=== PATIENT | female | born 1995 | race Two or more races ===

== ENCOUNTER 2024-10-11 04:05 | Inpatient (IN) | payer MEDICAID ==
[~2024-10-11] VITALS: Ht 165.1 cm; Wt 73.9 kg
[2024-10-11] MEDS ORDERED: PHISODERM TOP SOLN 240ML BTL TOP PRN (04:30)
[2024-10-11] MEDS ORDERED: DERMOPLAST 60ML BOTTLE TOP PRN (04:30)
[2024-10-11] MEDS ORDERED: LACTATED RINGER'S 1,000 ML IV SCH (04:30)
[2024-10-11] MEDS ORDERED: NALBUPHINE HCL 10 MG/1ml INJECTION IV PRN (04:30)
[2024-10-11] MEDS ORDERED: PENICILLIN G POT 5MIL/D5 50ML 50 ML IV ONE ×2 (04:30→04:52)
[2024-10-11] MEDS ORDERED: LIDOCAINE 2%HCL (LOCAL ANESTH.) INJ 20ML MDV IJ PRN (04:30)
[2024-10-11] MEDS ORDERED: WITCH HAZEL-GLYCERIN PAD TOP PRN (04:30)
[2024-10-11] MEDS: LACT. RINGERS/OXYTOCIN 20UNITS 500 ML IV ONE (04:58)
[2024-10-11] MEDS ORDERED: LACT. RINGERS/OXYTOCIN 20UNITS 500 ML IV ONE (05:00)
[2024-10-11] MEDS: METHYLERGONOVINE MALEATE 0.2 MG/ML AMP IM ONE (05:04)
[2024-10-11 05:20] LABS: Basophils # (auto) 0.1 10 ^3/uL (0-0.2); Basophils % (auto) 0.6 % (0.0-2.0); Eosinophils # (auto) 0.1 10 ^3/uL (0-0.8); Eosinophils % (auto) 0.9 % (0.0-7.0); Hemoglobin 12.7 g/dL (12.2-16.2); INR 0.95 (0.9-1.15); Lymphocytes # (auto) 2.5 10 ^3/uL (0.4-5.4); Lymphocytes % (auto) 24.3 % (10.0-50.0); Mean Corpuscular Hemoglobin 22.5 pg (28.0-32.0); Mean Corpuscular Hgb Conc. 31.9 g/dL (32.0-36.0); Mean Corpuscular Volume 70.7 fL (80.0-100.0); Monocytes # (auto) 0.6 10 ^3/uL (0-1.3); Monocytes % (auto) 6.1 % (0.0-12.0); Neutrophils % (auto) 68.1 % (37.0-80.0); Nucleated Red Blood Cells % 0.3 %; Partial Thromboplastin Time 28.7 SEC (24.5-34.5); Platelet Count (auto) 103 10^3/uL (140-450); Prothrombin Time 10.1 sec (9.3-11.8); Red Blood Cells 5.65 10^6/uL (4.0-5.20); Red Cell Distribution Width 16.9 % (11.8-14.3); White Blood Cell 10.3 10^3/uL (4.4-10.8)
[2024-10-11 05:26] LABS: Albumin 4.3 g/dL (3.2-4.8); Anion Gap 12 (5-15); Aspartate Aminotransferase 21 U/L (13-40); BUN/Creatinine Ratio 8.8 (10.0-20.0); Calcium 9.6 mg/dL (8.7-10.4); Carbon Dioxide 21 mmol/L (20-31); Chloride 106 mmol/L (98-107); Glucose 100 mg/dL (74-106); Sodium 139 mmol/L (136-145)
[2024-10-11 05:34] LABS: Alanine Aminotransferase < 9 U/L (7-40); Alkaline Phosphatase 254 U/L (46-116); Blood Urea Nitrogen 6 mg/dL (9-23); Potassium 3.4 mmol/L (3.5-5.1)
--- NOTE | 2024-10-11 05:35 | DVHHP2 ---
OB CC & HPI Date Date of Admission: Oct 11, 2024 Patient Identification: : 3 Para: 2 EDC: Oct 23, 2024 EGA: 38WKS Chief Complaints: Reason for admission: active labor Admission Nurse Assessment Rev: No History of Present Complaints PT PRESENTED IN ACTIVE LABOR WITH ROM .SHE STATES SHE HAD CARE IN [place] Past Medical History Cardiac: No pertinent Hx Pulmonary: No pertinent Hx Central Nervous System: No pertinent Hx GI: No pertinent Hx Hemotology/Oncology: No pertinent Hx Hepatobiliary: No pertinent Hx Psychiatric: No pertinent Hx Musculoskeletal: No pertinent Hx Rheumotologic: No pertinent Hx Infectious Disease: No peritnent Hx ENT: No pertinent Hx Renal/: No pertinent Hx Endocrine: No pertinent Hx Dermatology: No pertinent Hx Past Surgical History: No pertinent Hx OB History OB History Care: Limited Care Ultrasounds: No ultrasounds Obstetrical Complications: None Medical Complications: None Allergies: Coded Allergies: NO KNOWN ALLERGIES (Unverified , 10/11/24) Current Medications Current Medications Medications (Trade) Dose Ordered Sig/Barron Route PRN Reason Start Time Stop Time Status Last Admin Lactated Ringer's 1,000 ml @ 125 mls/hr Q8H IV 10/11/24 04:30 Nalbuphine HCl (Nubain) 10 mg Q4HP PRN IV MODERATE PAIN (4-6 PAIN SCALE) 10/11/24 04:30 Penicillin G Potassium [id number] units/Dextrose 50 ml @ 100 mls/hr Q4H IV 10/11/24 08:30 Witch Lauren (Tucks) 1 pad PRN PRN TOP PERINEAL AREA DISCOMFORT 10/11/24 04:30 Sodium Lauryl Sulfate (Phisoderm) 240 ml PRN PRN TOP PERINEAL AREA DISCOMFORT 10/11/24 04:30 Benzocaine (Dermoplast) 1 applic PRN PRN TOP PERINEAL AREA DISCOMFORT 10/11/24 04:30 Lidocaine HCl (Xylocaine) 40 ml ONCE PRN IJ PERINEAL AREA DISCOMFORT 10/11/24 04:30 Family & Social History Family/Social History Blood Type: Unknown Rubella: unknown RPR/VDRL: Unknown GBS Status: Unknown HBsAG: Unknown Review of Systems Constitutional: No symptom reported Ears, Nose, & Throat: No symptom reported Eyes: No symptom reported Pulmonary/Respiratory: No symptom reported Cardiovascular: No symptom reported Gastrointestinal: No symptom reported Genitourinary: No symptom reported Musculoskeletal: No symptom reported Skin: No symptom reported Psychiatric: No symptom reported Endocrine: No symptom reported Hemotologic/Lymphatic: No symptom reported OB Admission Exam Physical Exam HEENT: TMs Normal, Fontanelles Normal, Nasal Mucosa Normal, Eyes non-injected, Oropharynx Normal, PERRLA, Moist Membranes, EOMI Heart: Rhythm Normal Lungs: Clear Abdomen: Non tender Extremities: Normal Reflexes: Normal Cervical Dilatation: 10cm Effacement: 100% Station: +3 Membranes: Ruptured Amniotic Fluid: Thick Meconium Heart Rate: 130's Accelerations: Accelerations Present Decelerations: No Decelerations Short Term Variability: Present Plant Inspector Variability: Average (6-25) Contractions on Admission: < 5 Minutes Apart Intensity: Moderate OB Plan Plan Admitting Diagnosis: ACTIVE Labor IUP AT 38WKS LIMITED CARE THICK MECONIUM Plan: Expectant Management Other Plan: INFORMED CONSENT OBTAINED Visit Coding OBGYN Date of Service: Oct 11, 2024 Billing Provider: APOLINAR BULL DO CLINIC RECEPTIONIST Common Visit Codes: 44263-WXFTMLP INP/OBS CARE (HIGH) CLINIC RECEPTIONIST Consultation Codes: 28469-C/U INPATIENT CONSULT (MOD) CLINIC RECEPTIONIST Procedure Codes: 81906-57- NON-STRESS TEST APOLINAR BULL DO Oct 11, 2024 05:35
--- NOTE | 2024-10-11 05:36 | DVH ---
EXAM: US Second or Third Trimester , Transabdominal CLINICAL INDICATION: NO CARE TECHNIQUE: Real-time transabdominal obstetrical ultrasound of the maternal pelvis and a second or th ird trimester with image documentation. COMPARISON: None FINDINGS: FETUS: Single live intrauterine . HEART RATE: heart rate 138 beats per minute. PRESENTATION: PLACENTA: Unremarkable. No placenta previa or abruption noted. AMNIOTIC FLUID: Unremarkable. ANATOMY: Intracranial/face anatomy not seen. Spinal anatomy not seen. Abdominal anatomy not seen. Extremities not seen. Four-chamber heart not seen. Umbilical cord not seen. BIOMETRICS GESTATIONAL AGE: FAITH: 11/10/2024 EFW: Estimated weight 2007 and 52 g. BPD: BPD 8.6 cm. HC: HC 31.9 cm. AC: AC 31.50 cm. FL: FL 7.15 cm. MATERNAL: UTERUS: Unremarkable. No myometrial mass. CERVIX: Unremarkable as visualized. Closed. FREE FLUID: No free fluid. OTHER FINDINGS: . Difficult scan secondary to active labor. HC/AC 1.02. FL/AC 22.70. MARIA DEL ROS[place]IO 80 0.5 8. . . . . .. IMPRESSION: A single intrauterine corresponding to 35 weeks and 5 days gestation.
--- NOTE | 2024-10-11 05:38 | LDN2 ---
Labor and Delivery Note Date 10/11/24 Age 29 3 Para 3 EDC 2-26 EGA 38WKS Diagnosis ACTIVE LABOR,LIMITED CARE,THICK MECONIUM Vaginal Delivery: VTX Vacuum Assisted: No Placenta: Spontaneous Sex: Male Apgars 8-9 Nuchal Cord Transected: No Amniotic Fluid: Thick Anesthesia XYLOCAINE Episiotomy: No Extension: Yes (1ST DEG PERINEAL LAC) Repaired with 2-0 CHROMIC EBL 300ML Labs Laboratory Tests 10/11/24 04:40: Complications NONE Conditions STABLE Comments/Significant Med Elham SPEC EXAM NOK CXAL LAC,CORD PH 7.4 Visit Coding OBGYN Date of Service: Oct 11, 2024 Billing Provider: APOLINAR BULL DO SENIOR ACCOUNTANT ANALYST Common Visit Codes: 43782-GUQ/OBS SAME DATE (HIGH) SENIOR ACCOUNTANT ANALYST Consultation Codes: 15621-A/U INPATIENT CONSULT (HIGH) SENIOR ACCOUNTANT ANALYST Procedure Codes: 45333-ZWT DEL INCLUDING APOLINAR BULL DO Oct 11, 2024 05:38
[2024-10-11 05:42] LABS: Urine Bacteria None Seen /hpf (None Seen)
[2024-10-11 05:53] LABS: Urine Blood 2+ /uL (Negative); Urine Clarity Turbid (Clear); Urine Color Light-Yellow (Yellow); Urine Mucus FEW (None Seen); Urine Protein, UAD Negative (Negative); Urine Specific Gravity 1.017 (1.001-1.035); Urine Squamous Epithelial Cell FEW /hpf (<5); Urine Urobilinogen Normal (Negative); Urine WBC 72 /HPF (0-5); Urine pH 6.5 (5.0-9.0)
[2024-10-11 06:26] LABS: Giant Platelets Few; Platelet Estimate Decreased
[2024-10-11 06:27] LABS: Hypochromia Slight; Ovalocytes FEW
[2024-10-11 06:46] LABS: Opiate Scree,Urine Neg (NEGATIVE)
[2024-10-11 06:47] LABS: Amphetamine Screen, Urine Neg (NEGATIVE); Barbiturate Scree,Urine Neg (NEGATIVE); Benzodiazephine Screen, Urine Neg (NEGATIVE); Cannabinoid Screen, Urine Neg (NEGATIVE); Cocaine Screen, Urine Neg (NEGATIVE); Phencyclidine Screen, Urine Neg (NEGATIVE)
[2024-10-11 06:57] LABS: Bilirubin, Total 0.3 mg/dL (0.2-1.0)
[2024-10-11] MEDS ORDERED: ACETAMINOPHEN 325 MG TAB PO PRN (07:15)
[2024-10-11] MEDS: IBUPROFEN 600 MG TAB PO PRN (07:22)
[2024-10-11] MEDS ORDERED: PENICILLIN G POTASSIUM 2,500,000 UNITS in D5W 5% 50 ML IV SCH (08:30)
[2024-10-11 11:30] VITALS: BP 116/64; PULSE 68; RESP 16; TEMP 98.3; O2SAT 97
[2024-10-11 15:25] VITALS: BP 118/67; PULSE 72; RESP 16; TEMP 98.1; O2SAT 97
[2024-10-11 18:59] VITALS: BP 126/74; PULSE 62; RESP 15; TEMP 98.4; O2SAT 99
[2024-10-11] MEDS ORDERED: DOCUSATE SOD 100 MG CAP PO SCH (22:00)
[2024-10-11 23:00] VITALS: BP 109/55; PULSE 65; RESP 16; TEMP 98.2; O2SAT 99
[2024-10-12 03:00] VITALS: BP 101/58; PULSE 66; RESP 15; TEMP 98.1; O2SAT 98
[2024-10-12 07:00] VITALS: BP 102/59; PULSE 59; RESP 14; TEMP 97.8; O2SAT 97
[2024-10-12 07:07] LABS: RPR Non Reactive (Non Reactive)
[2024-10-12] MEDS ORDERED: PREN-96 PO (08:02)
[2024-10-12 08:07] LABS: Rubella Antibodies, IgG 2.97 index (Immune >0.99)
--- NOTE | 2024-10-12 08:47 | DVHPN2 ---
Chief Complaints Patient reports: No new complaints Nursing reports: No new complaints Objective Vitals Vital Signs Date Time Temp Pulse Resp B/P (MAP) Pulse Ox O2 Delivery O2 Flow Rate FiO2 10/12/24 03:00 98.1 66 15 101/58 (72) 98 98.1 10/11/24 19:00 Room Air Medications Current Medications Medications (Trade) Dose Ordered Sig/Barron Route PRN Reason Start Time Stop Time Status Last Admin Docusate Sodium (Colace Capsule) 200 mg HS PO 10/11/24 22:00 General: Normal Lungs: Normal Cardiovascular: Normal Abdominal: Soft Extremities: Normal Studies Laboratory Tests 10/11/24 04:40 Test 10/11/24 04:40 Range/Units Serum Glucose 100 74-106 mg/dL Ass/Plan Assessment s/p Plan dc home fu in 2wks Visit Coding OBGYN Date of Service: Oct 12, 2024 Billing Provider: APOLINAR BULL DO COTTRELL BLOWER Common Visit Codes: [id number] INP/OBS CARE(HIGH) APOLINAR BULL DO Oct 12, 2024 08:47
--- NOTE | 2024-10-12 08:49 | DVHDS2 ---
Obstetrics Discharge Summary Obstetrics Discharge Summary Date of Admission: Oct 11, 2024 Date of Discharge: Oct 12, 2024 Reason For Admission: Onset of Labor Procedures: NST Intrapartum Procedures: Spontaneous vaginal deliv Operative Complicat: Laceration (Perineal) Discharge Diagnosis: Term -Delivered Discharge Information: Activity (Other), Diet (Routine), Medications (None), Instructions (Routine), Discharge to (Home), Discarge date (-) Visit Coding OBGYN Date of Service: Oct 12, 2024 Billing Provider: APOLINAR BULL DO SENIOR RD ENGINEER Common Visit Codes: 77514-MDS/OBS SAME DATE (HIGH) SENIOR RD ENGINEER Procedure Codes: 11594-QPO DELIVERY ONLY APOLINAR BULL DO Oct 12, 2024 08:49
== END 2024-10-12 09:16 | disposition home or self-care (01) | DRG 560 ==
LOC: LDRP 04:05 → OBSVTOIN 04:15 → LDRP 04:26
PROVIDERS: ADMIT Obstetrics & Gynecology; ATTEND Obstetrics & Gynecology
PROC: 10E0XZZ Delivery of Products of Conception, External Approach (ICD-10-PCS; principal; 2024-10-11)
PROC: 0HQ9XZZ Repair Perineum Skin, External Approach (ICD-10-PCS; 2024-10-11)
DX: O77.0 Labor and delivery complicated by meconium in amniotic fluid (principal); Z37.0 Single live birth; O70.0 First degree perineal laceration during delivery; Z3A.38 38 weeks gestation of pregnancy
CPT/HCPCS: 36415; 59025; 59409; 76805; 80053; 80307; 81001; 81002; 85025; 85610; 85730; 86592; 86703; 86762; 86780; 86803; 86850; 86900; 86901; 87340; 94760; 96360; 96361; 96372; G0378; J2540; J2590; J7060